=== PATIENT | male | born 1960 | race Caucasian/White ===

== ENCOUNTER 2025-08-29 09:38 | Day surgery (SDC) | payer MEDICARE, BC ==
[2025-08-29] MEDS: Lactated Ringers 1,000 ML IV SCH (09:51)
[2025-08-29] MEDS ORDERED: Propofol 200 MG/20 ML SDV ONE ×2 (10:01→11:38)
[2025-08-29] MEDS ORDERED: fentaNYL 100 MCG/2 ML SDV ONE (10:01)
== END 2025-08-29 12:25 | disposition home or self-care (01) ==
LOC: VM.SDS 09:38
PROVIDERS: ATTEND Surgery
DX: Z12.11 Encounter for screening for malignant neoplasm of colon (principal); E11.65 Type 2 diabetes mellitus with hyperglycemia; Z86.16 Personal history of COVID-19; Z88.8 Allergy status to other drugs, medicaments and biological substances; Z79.84 Long term (current) use of oral hypoglycemic drugs; Z79.899 Other long term (current) drug therapy
CPT/HCPCS: 00812; J2704; J3010; J7120